=== PATIENT | male | born 1970 | race Asian ===

== ENCOUNTER 2018-07-04 18:01 | Emergency (ER) | payer OTHER ==
[~2018-07-04] VITALS: Ht 167.6 cm; Wt 70.8 kg
[2018-07-04 18:22] VITALS: Ht 167.6 cm; Wt 70.8 kg
[2018-07-04 20:50] VITALS: BP 136/95
== END 2018-07-04 20:50 | disposition home or self-care (01) ==
LOC: ED 18:01
DX: S01.01XA Laceration without foreign body of scalp, initial encounter (principal); W20.8XXA Other cause of strike by thrown, projected or falling object, initial encounter; Y93.89 Activity, other specified; Y92.89 Other specified places as the place of occurrence of the external cause; Y99.8 Other external cause status
CPT/HCPCS: 90715; J2001